=== PATIENT | female | born 1995 | race Caucasian/White ===

== ENCOUNTER 2022-03-09 19:32 | Emergency (ER) | payer OTHER, MEDICAID, SELFPAY ==
[2022-03-09 19:33] VITALS: BP 158/75; PULSE 89; RESP 16; TEMP 36.4; O2SAT 98; BMI 39.9
[2022-03-09 20:24] LABS: Hematocrit 31.8 % (37-47); Mean Corp Hgb Conc 34.6 g/dL (32-36); Mean Corpuscular Hgb 28.7 pg (27.0-32.0); Mean Platelet Vol. 9.7 fl (6.2-12.0); Platelet Count 185 K/mm3 (150-450); RBC Distribution Width SD 41.9 fl (35.1-43.9); Red Blood Count 3.83 M/mm3 (4.2-5.4); White Blood Count 8.6 K/mm3 (4.4-11.0)
[2022-03-09 20:25] LABS: Mucous, Urine 0 SEEN /hpf (<or=2+)
[2022-03-09] MEDS: 0.9% Normal Saline 1,000 ML 1000 ML IV (20:25)
[2022-03-09 20:28] LABS: Color, Urine Yellow (Yellow); Glucose, Dipstick Normal (Normal); Ketone-Dipstick Negative (Negative); Leukocyte Esterase-Dipstick 25 /ul (Negative); Nitrite-Dipstick Negative (Negative); Occult Blood-Urine 10 /ul (Negative); Protein-Dipstick Negative (Negative); Urine Bilirubin Dipstick Negative (Negative); Urine Clarity Clear (Clear); Urine Urobilinogen Normal (Normal); Urine pH 6.5 (5.0 - 8.0)
[2022-03-09 20:54] LABS: Bacteria 3+ /hpf (None Seen); Red Blood Cells-Urine 0-5 SEEN /hpf (0-5); Squamous Epithelial Cells - UA 0-5 SEEN /hpf (5-10); White Blood Cells 0-5 SEEN /hpf (0-5)
[2022-03-09 21:04] LABS: ALB/GLOB Ratio 0.8 RATIO (0.9-2.4); AST(SGOT) 25 U/L (15-37); Alanine Aminotransfer ALT/SGPT 16 U/L (13-56); Alkaline Phosphatase 45 U/L (45-117); Anion Gap 9 (5-15); BUN 6 mg/dL (7-18); BUN/Creat Ratio 8.9 RATIO (10-20); Calcium,Total 9.4 mg/dL (8.5-10.1); Chloride 106 mmol/L (98-107); Creatinine, Serum 0.67 mg/dL (0.55-1.02); EST Glomerular Filtration Rate 114 mL/min (>60); Est Glom Filt Rate - Afr Amer 138 mL/min (>60); Globulin 3.8 g/dL (2.2-4.2); Glucose 79 mg/dL (74-106); Potassium 3.6 mmol/L (3.5-5.1); Protein, Total 6.8 g/dL (6.4-8.2); Sodium Level 136 mmol/L (136-145)
[2022-03-09 21:17] VITALS: BP 128/62; PULSE 81; RESP 22; O2SAT 98
--- NOTE | 2022-03-09 21:37 | EDS_ITS ---
HPI History of Present Illness Chief Complaint: Dizziness Informant: patient Onset/Context/Timing Onset: Days Context: Gradual Onset Timing: Continuous Quality: generalized Current Severity: Mild Associated Symptoms Associated Symptoms: nothing Narrative Narrative: at [address] Ritter. Twin . She was sent in for dizziness, told she needed fluids. She had an episode of vomiting but no further vomiting. No diarrhea. She has had an ultrasound already during this . She is not having any bleeding. She has some mild abdominal pain. No new discharge. No urinary symptoms. No fevers. Prior similar symptoms: No PFSH PFSH Medical History no medical history Home Medications aspirin 81 mg tablet,delayed release 81 mg PO DAILY 03/09/22 [History Last Taken Unknown] folic acid 800 mcg tablet 0.8 mg PO DAILY 03/09/22 [History Last Taken Unknown] vit (without vit A)-iron,carbonyl-FA 29 mg-1 mg tablet 1 tab PO DAILY 03/09/22 [History Last Taken Unknown] sertraline 100 mg tablet 200 tab PO DAILY 03/09/22 [History Last Taken Unknown] Allergy/AdvReac Type Severity Reaction Status Date / Time acetaminophen [From [place]] Allergy Rash Verified 03/09/22 19:35 hydrocodone [From [place]] Allergy Rash Verified 03/09/22 19:35 Sulfa (Sulfonamide Allergy Itching Verified 03/09/22 19:35 Antibiotics) Social History Smoking Status: Never smoker ROS ROS ED Review of Systems ROS Unobtainable: Denies due to encephalopathy Constitutional Constitutional ED: Denies chills Eyes Eyes: Denies blurry vision ENT ENT ED: Denies ear pain Cardiovascular Cardiovascular: Denies chest pain Respiratory/Chest Respiratory/Chest: Denies cough Gastrointestinal Gastrointestinal: Reports abdominal pain and vomiting Genitourinary Genitourinary ED: Denies dysuria Musculoskeletal Musculoskeletal: Denies arthralgias Integumentary Denies abscess Neurologic Neurologic: Denies headache(s) Psychiatric Psychiatric: Denies anxiety Endocrine Endocrinology: Denies cold intolerance Hematologic/Lymphatic Hematologic/Lymphatic: Denies systems reviewed and no addt'l complaints, except as documented Allergic/Immunologic Allergic/Immunologic ED: Denies mouth swelling EXAM Physical Exam Const Vital Signs: 03/09/22 19:33 03/09/22 19:54 03/09/22 21:17 Temperature 97.6 F L Temperature Source Temporal Pulse Rate 89 81 Respiratory Rate 16 22 H Respiratory Effort Normal Non-Labored Respiratory Pattern Normal Blood Pressure 158/75 H 128/62 H Blood Pressure Mean 102 84 Pulse Ox 98 98 Oxygen Delivery Method Room Air Room Air Positive well nourished HEENT Reports moist mucous membranes Eyes EOMs intact bilaterally Resp normal respiratory effort Cardio regular rate GI GI Narrative: Full, nontender Back/Spine no CVA tenderness Extremity normal to inspection Neuro oriented x3 Psych mental status grossly normal Skin no rashes or lesions noted MDM MDM MDM Narrative Medical decision making narrative: Nursing was unable to obtain heart tones on both pregnancies. I used a bedside ultrasound and visualized both pregnancies. Both had spontaneous movement and good cardiac activity. Patient's hemoglobin was 11. Metabolic panel and liver panel were unremarkable. She had 3+ bacteria in her urine, 25 leuk esterase but negative nitrites and negative white cells. I sent a culture. I do not believe she has an infection based on her history and symptoms. She will follow-up with her HYDRAULIC PILE HAMMER OPERATOR. She was advised if she does have urine symptoms or fever, she should return right away or follow-up with her HYDRAULIC PILE HAMMER OPERATOR right away. Patient received IV fluids. She feels slightly better. I do not believe she needs further interventions or diagnostic testing. She will be discharged to follow-up as an outpatient. Return for new or worsening issues. Impression #1 twin Impression #2 dizziness Impression #3 bacteriuria Lab Data Attestation: I reviewed the patient's lab results. Labs: Laboratory Results - last 24 hr 03/09/22 03/09/22 03/09/22 19:50 19:50 20:19 WBC 8.6 RBC 3.83 L Hgb 11.0 L Hct 31.8 L MCV 83.0 MCH 28.7 MCHC 34.6 RDW Std Deviation 41.9 RDW Coeff of Aung 14.0 Plt Count 185 MPV 9.7 Sodium 136 Potassium 3.6 Chloride 106 Carbon Dioxide 21.0 Anion Gap 9 BUN 6 L Creatinine 0.67 Estim Creat Clear Calc 97.70 Est GFR (MDRD) Af Amer 138 Est GFR (MDRD) Non-Af 114 BUN/Creatinine Ratio 8.9 L Glucose 79 Calcium 9.4 Total Bilirubin 0.30 AST 25 ALT 16 Alkaline Phosphatase 45 Total Protein 6.8 Albumin 3.0 L Globulin 3.8 Albumin/Globulin Ratio 0.8 L Urine Color Yellow Urine Clarity Clear Urine pH 6.5 Ur Specific [place] 1.010 Urine Protein Negative Urine Glucose (UA) Normal Urine Ketones Negative Urine Occult Blood 10 H Urine Nitrite Negative Urine Bilirubin Negative Urine Urobilinogen Normal Ur Leukocyte Esterase 25 H Urine RBC 0-5 SEEN Urine WBC 0-5 SEEN Ur Squamous Epith Cells 0-5 SEEN Urine Bacteria 3+ Urine Mucus 0 SEEN Discharge Plan Triage Chief Complaint: Dizziness ED Provider: Canelo Crawford Dx/Rx/DC Orders Prescriptions: No Action sertraline 100 mg tablet 200 tab PO DAILY aspirin [Aspir-81] 81 mg Tablet,Delayed Release (Dr/Ec) 81 mg PO DAILY folic acid 800 mcg Tablet 0.8 mg PO DAILY Prenatabs OBN 29-1 mg Tablet 1 tab PO DAILY Primary Care Provider: PEARL ALEXANDRA Referrals: PEARL ALEXANDRA MD [Primary Care Provider] -
[2022-03-09 22:19] VITALS: BP 125/74; PULSE 85; RESP 17; O2SAT 98
== END 2022-03-09 22:29 | disposition home or self-care (01) ==
PROVIDERS: Emergency Provider Emergency Medicine; PCP Internal Medicine; Visit Provider Emergency Medicine
DX: O99.891 Other specified diseases and conditions complicating pregnancy (principal); O30.002 Twin pregnancy, unspecified number of placenta and unspecified number of amniotic sacs, second trimester; Z3A.16 16 weeks gestation of pregnancy; R42 Dizziness and giddiness; R82.71 Bacteriuria
CPT/HCPCS: 80053; 81001; 85027; 87086; 87088; 96360; 96361; 99282; J7030

== ENCOUNTER 2022-06-29 15:10 | Outpatient (CLI) | payer OTHER, MEDICAID, SELFPAY ==
[2022-06-29 15:35] VITALS: TEMP 37.1
[2022-06-29 15:38] VITALS: BP 129/77; PULSE 83
[2022-06-29] MEDS: LACTATED RINGERS 500 ML 999 ML IV (15:54)
[2022-06-29 16:16] LABS: Hematocrit 30.3 % (37-47); Hemoglobin 10.2 g/dL (12.0-15.0); Mean Corp Hgb Conc 33.7 g/dL (32-36); Mean Corpuscular Volume 86.1 fL (81-99); Mean Platelet Vol. 8.8 fl (6.2-12.0); Platelet Count 141 K/mm3 (150-450); RBC Distribution Width CV 14.2 % (11.6-14.6); RBC Distribution Width SD 43.7 fl (35.1-43.9); Red Blood Count 3.52 M/mm3 (4.2-5.4); White Blood Count 7.8 K/mm3 (4.4-11.0)
[2022-06-29 16:18] VITALS: BMI 41.5
[2022-06-29] MEDS: Betamethasone/Betamethasone 30 MG/5 ML Vial 12 MG IM (16:36)
[2022-06-29 16:49] LABS: Mucous, Urine 0 SEEN /hpf (<or=2+); Red Blood Cells-Urine 0 SEEN /hpf (0-5)
[2022-06-29 16:56] LABS: Color, Urine Yellow (Yellow); Glucose, Dipstick Normal (Normal); Ketone-Dipstick 50 mg/dl (Negative); Leukocyte Esterase-Dipstick 25 /ul (Negative); Nitrite-Dipstick Negative (Negative); Occult Blood-Urine Negative /ul (Negative); Protein-Dipstick 15 mg/dl (Negative); Urine Bilirubin Dipstick Negative (Negative); Urine Clarity Clear (Clear); Urine Urobilinogen Normal (Normal)
[2022-06-29 17:30] LABS: Bacteria 1+ /hpf (None Seen); Squamous Epithelial Cells - UA 0-5 SEEN /hpf (5-10); White Blood Cells 0-5 SEEN /hpf (0-5)
[2022-06-29 18:10] VITALS: BP 134/75; PULSE 82
--- NOTE | 2022-06-29 19:11 | OB.TRI.NOTE ---
HPI - General HPI Narrative JOSE TEE, is a 26 F at 32.2 weeks gestation with Di/Di twins who was sent over from office for extended monitoring and Celestone IM X 1. Patient seen in office for cramps/contractions and back pain that started yesterday evening. She denies any loss of fluid, vaginal bleeding and has positive movements. CE in office . Maternal Data Information MARILIA Calculator Estimated Delivery Date Method Current WG Current Estimate 08/22/22 Manual 32w 2d PFSH PFSH Home Medications aspirin 81 mg tablet,delayed release 81 mg PO DAILY 03/09/22 [History Last Taken 06/28/22] folic acid 800 mcg tablet 0.8 mg PO DAILY 03/09/22 [History Last Taken 06/28/22] vit (without vit A)-iron,carbonyl-FA 29 mg-1 mg tablet 1 tab PO DAILY 03/09/22 [History Last Taken 06/28/22] sertraline 100 mg tablet 200 tab PO DAILY 03/09/22 [History Last Taken 06/28/22] Allergy/AdvReac Type Severity Reaction Status Date / Time acetaminophen [From [place]] Allergy Rash Verified 06/29/22 16:23 hydrocodone [From [place]] Allergy Rash Verified 06/29/22 16:23 Sulfa (Sulfonamide Allergy Itching Verified 06/29/22 16:23 Antibiotics) Social History Smoking Status: Never smoker ROS Eyes Eyes: Denies blurry vision Cardiovascular Cardiovascular: Reports none; Denies chest pain at rest, chest pain with activity or dizziness Respiratory/Chest Respiratory/Chest: Denies cough or dyspnea Gastrointestinal Gastrointestinal: Reports none and other; Denies diarrhea or vomiting Genitourinary Genitourinary: Denies dysuria Musculoskeletal Musculoskeletal: Reports none Integumentary Integumentary: Reports none; Denies rash Neurologic Neurologic: Denies dizziness, headache(s) or other visual disturbances Psychiatric Psychiatric: Reports none Physical Exam Const alert and no apparent distress General Appearance: cooperative Orientation / Consciousness: awake Exam Limitations: no limitations HEENT normocephalic Eyes General Eye: normal appearance of both eyes Neck full ROM Chest inspection of chest normal Resp normal respiratory effort and normal air movement Effort and Inspection: symmetric chest movement Auscultation: clear to auscultation bilaterally Cardio regular rate GI soft to palpation, non-tender and non-distended Inspection: and other Back/Spine normal ROM Extremity full ROM, normal capillary refill and no calf tenderness Skin no rashes or lesions noted Neuro oriented x3 and CN's II-XII intact bilaterally Psych mental status grossly normal NST FHR Rate Baby A Baseline: 135 Variability:: Moderate Accelerations:: 15 x 15 Decelerations:: None NST Reactive:: Yes FHR Rate Baby B Baseline: 155 Variability:: Moderate Accelerations:: 15 x 15 Decelerations:: None NST Reactive:: Yes Uterine Activity:: 1-4 minutes, palpate mild and relaxed in between Assessment & Plan (1) Dichorionic diamniotic twin in third trimester: (2) 32 weeks gestation of : (3) Uterine contractions: PLAN: Plan IV started- 500 cc fluid bolus x 1 then run at 50 cc/hour UA- positive for ketones, protein, and leukocyte estrace Celestone 12 mg IM x 1 now and repeat dose in 24 hours NST reactive- Contractions via TOCO every 2-4 minutes- palpate mild- patient does not feel all contractions TAUS confirms Baby A vertex and Baby B vertex CE- 3/70/-2- Change from office exam Continue to monitor over night and will reevaluate in AM or as indicated Aluminum Boat Assembly Supervisor consulted Dr. Parisi involved in plan of care and is collaborating physician
[2022-06-29 19:29] VITALS: BP 136/78; PULSE 86; TEMP 36.6
[2022-06-29] MEDS: Lactated Ringers 500 ML 999 ML IV (19:50)
[2022-06-29] MEDS: Lactated Ringers 1,000 ML 50 ML IV (20:21)
--- NOTE | 2022-06-29 21:40 | PCM.PN.BLA ---
Progress Note Called to patient's room for evaluation due to continued contractions every 1-2 minutes. IV fluid bolus completed. Patient starting to feel contractions. Assessment & Plan Assessment/Plan (1) Uterine contractions: (2) 32 weeks gestation of : (3) Dichorionic diamniotic twin in third trimester: (4) labor: PLAN: Plan CE- 3.5/70/-2 Bulging bag felt with contraction Dr. Parisi notified and patient to be transferred to a tertiary care hospital ([facility]) Dr. Parisi to speak with MFM transition nurse to discuss transport and plan of care Financial Services Manager updated
--- NOTE | 2022-06-29 21:48 | HP.PCM.OB_ITS ---
HPI - General HPI Narrative JOSE TEE, is a 26 F with dichorionic/diamniotic twin gestation that presented with contractions and labor. She continued to have contractions every 1-3 minutes and made cervical change since arrival to triage. has been complicated by Obesity, Anemia, and Thrombocytopenia. Maternal Data Information MARILIA Calculator Estimated Delivery Date Method Current WG Current Estimate 08/22/22 Manual 32w 2d PFSH PFSH Home Medications aspirin 81 mg tablet,delayed release 81 mg PO DAILY 03/09/22 [History Last Taken 06/28/22] folic acid 800 mcg tablet 0.8 mg PO DAILY 03/09/22 [History Last Taken 06/28/22] vit (without vit A)-iron,carbonyl-FA 29 mg-1 mg tablet 1 tab PO DAILY 03/09/22 [History Last Taken 06/28/22] sertraline 100 mg tablet 200 tab PO DAILY 03/09/22 [History Last Taken 06/28/22] Allergy/AdvReac Type Severity Reaction Status Date / Time acetaminophen [From [place]] Allergy Rash Verified 06/29/22 16:23 hydrocodone [From [place]] Allergy Rash Verified 06/29/22 16:23 Sulfa (Sulfonamide Allergy Itching Verified 06/29/22 16:23 Antibiotics) Social History Smoking Status: Never smoker Visit Details OB Flowsheet Initial Weight: Not Recorded Date -?-?-?-?-?-?-?-?-?-?-?-?- EGA Weight BP Urine Prot -?-?-?-?-?-?-?-?-?-?-?-?- Glucose FHR FuHt Pres Dilation -?-?-?-?-?-?-?-?-?-?-?-?- Effaced St Visit Note 06/29/22 -?-?-?-?-?-?-?-?-?-?-?-?- 32w 2d 220 lb 129/77 134/75 136/78 135/73 15 mg/dl (Negative) H -?-?-?-?-?-?-?-?-?-?-?-?- -?-?-?-?-?-?-?-?-?-?-?-?- NST FHR Rate Baby A Baseline: 135 Variability:: Moderate Accelerations:: 15 x 15 Decelerations:: None NST Reactive:: Yes FHR Category:: Category I FHR Rate Baby B Baseline: 155 Variability:: Moderate Accelerations:: 15 x 15 Decelerations:: None NST Reactive:: Yes FHR Category:: Category I Uterine Activity:: TOCO- 1-3 minutes, palpate mild to moderate and relaxed in between ROS Eyes Eyes: Denies blurry vision, change in vision or spots in vision ENT HEENT: Denies dizziness or headache(s) Cardiovascular Cardiovascular: Denies abdominal pain, chest pain or dyspnea Respiratory/Chest Respiratory/Chest: Denies cough, dyspnea, shortness of breath at rest or shortness of breath with exertion Gastrointestinal Gastrointestinal: Denies abdominal pain, diarrhea or vomiting Genitourinary Genitourinary: Denies change in urinary stream, difficulty urinating or dysuria Musculoskeletal Musculoskeletal: Reports none Integumentary Integumentary: Denies rash Neurologic Neurologic: Denies dizziness, headache(s), memory loss or weakness Psychiatric Psychiatric: Reports none Vital Signs Vital Signs Vital Signs: 06/29/22 15:38 06/29/22 15:38 06/29/22 15:35 Temperature Temperature Source Tympanic Pulse Rate 83 Blood Pressure 129/77 H BP Systolic 129 BP Diastolic 77 06/29/22 15:35 06/29/22 18:10 06/29/22 18:10 Temperature 98.7 F Temperature Source Pulse Rate 82 Blood Pressure 134/75 H BP Systolic 134 BP Diastolic 75 06/29/22 19:29 06/29/22 19:29 06/29/22 19:29 Temperature Temperature Source Temporal Pulse Rate 86 Blood Pressure 136/78 H BP Systolic 136 BP Diastolic 78 06/29/22 19:29 Temperature 97.8 F Temperature Source Pulse Rate Blood Pressure BP Systolic BP Diastolic Weight Weight: 220 lb Body Mass Index (BMI) 41.5 Physical Exam Const alert and no apparent distress General Appearance: cooperative Orientation / Consciousness: awake Exam Limitations: no limitations HEENT normocephalic Eyes General Eye: normal appearance of both eyes Neck full ROM Chest inspection of chest normal Resp normal respiratory effort and normal air movement Effort and Inspection: symmetric chest movement Auscultation: clear to auscultation bilaterally Cardio regular rate GI soft to palpation, non-tender and non-distended Inspection: and other Back/Spine normal ROM Extremity full ROM, normal capillary refill and no calf tenderness Skin no rashes or lesions noted Neuro oriented x3 and CN's II-XII intact bilaterally Psych mental status grossly normal Labs Labs Labs: Blood Type A POSITIVE Antibody Screen NEGATIVE Hct 30.3 % (37-47) L Hgb 10.2 g/dL (12.0-15.0) L GBS - pending Assessment & Plan (1) labor: (2) 32 weeks gestation of : (3) Dichorionic diamniotic twin in third trimester: (4) Obesity: (5) Anemia affecting : (6) Thrombocytopenia affecting : PLAN: Plan Dr. Parisi - Physician family preservation officer and involved with plan of care CE- 3.5/70/-2 Celestone 12 mg IM x 1 dose given TAUS confirms vertex position for baby A and baby B Transfer patient to tertiary care hospital ([facility]) via transport team Dr. Ramez Golden is receiving physician
[2022-06-29 21:55] VITALS: BP 135/73; PULSE 83
== END 2022-06-29 23:05 | disposition short-term general hospital (02) ==
LOC: WPOUT 15:20 → WP 15:21
PROVIDERS: PCP Internal Medicine; Visit Provider Advanced Practice Midwife
DX: O30.043 Twin pregnancy, dichorionic/diamniotic, third trimester (principal); O47.03 False labor before 37 completed weeks of gestation, third trimester; O99.213 Obesity complicating pregnancy, third trimester; O99.013 Anemia complicating pregnancy, third trimester; Z3A.32 32 weeks gestation of pregnancy
CPT/HCPCS: 96360; 36415; 59025; 59050; 76815; 81001; 85027; 86850; 86900; 86901; 87086; 87088; 96372; 99218; J7120; G0378; J0702

== ENCOUNTER 2022-07-28 19:45 | Inpatient (IN) | payer OTHER, MEDICAID, SELFPAY ==
[2022-07-28] VITALS (52 sets, daily range): BP systolic 126–163; BP diastolic 60–92; PULSE 68–90; RESP 14–18; TEMP 36.9–38.7; O2SAT 91–100; BMI 41.5
[2022-07-28 19:56] LABS: ROM Internal Control Test YES-OK TO RESULT pt. (Internal QC)
[2022-07-28] MEDS: Lactated Ringers 1,000 ML 999 ML IV (20:00)
[2022-07-28 20:01] LABS: ROM Patient Test POSITIVE (Negative)
[2022-07-28 20:24] LABS: Absolute Lymphocyte Count 1.68 X10^3/uL (0.83-4.51); Absolute Neutrophil Count 6.5 X10^3/uL (2.0-7.7); Basophil# 0.01 X10^3/uL; Basophil% 0.1 % (0-1); Eosinophil# 0.05 X10^3/uL; Eosinophils% 0.6 % (0-5); Hematocrit 33.9 % (37-47); Hemoglobin 11.6 g/dL (12.0-15.0); Lymphocyte # 1.68 X10^3/ul (0.83-4.51); Lymphocyte % 18.9 % (19-41); Mean Corp Hgb Conc 34.2 g/dL (32-36); Mean Corpuscular Hgb 29.3 pg (27.0-32.0); Mean Corpuscular Volume 85.6 fL (81-99); Mean Platelet Vol. 8.9 fl (6.2-12.0); Monocyte# 0.57 X10^3/uL; Monocyte% 6.4 % (0-10); NRBC Flagged by Analyzer 0 % (0-5); Neutrophil # 6.51 X10^3/uL (2.7-7.7); Neutrophil % 73.4 % (47-70); Platelet Count 137 K/mm3 (150-450); RBC Distribution Width CV 13.8 % (11.6-14.6); RBC Distribution Width SD 42.5 fl (35.1-43.9); Red Blood Count 3.96 M/mm3 (4.2-5.4); White Blood Count 8.9 K/mm3 (4.4-11.0)
[2022-07-28] MEDS: Ondansetron 4 MG/2 ML Vial IV (20:24)
[2022-07-28] MEDS: 0.9% Saline Lock 10 ML Syringe IV (20:24)
[2022-07-28] MEDS: LACTATED RINGERS 500 ML 999 ML IV (20:25)
--- NOTE | 2022-07-28 20:29 | HP.PCM.OB_ITS ---
HPI - General General Date of Admission: 07/28/22 Date of Service: 07/28/22 Chief Complaint: labor HPI Narrative JOSE TEE, is a 26-year-old 1 para 0 with dichorionic diamniotic twins presents complaining of contractions and spontaneous rupture membranes. She is been having contractions since mid afternoon. She had spontaneous rupture membranes at 5:30 PM and the contractions got worse. She denies any severe headache, visual changes or epigastric pain. has been complicated to date by anemia, threatened labor and she received betamethasone earlier in the , thrombocytopenia, obesity with current BMI of 41, group B strep carrier and anxiety. Maternal Data Information MARILIA Calculator Estimated Delivery Date Method Current WG Current Estimate 08/22/22 Manual 36w 3d Final MARILIA: 08/22/22 Gestational age: 36 10/20 PFSH PFS Home Medications aspirin 81 mg tablet,delayed release 81 mg PO DAILY 03/09/22 [History Last Taken 06/28/22] folic acid 800 mcg tablet 0.8 mg PO DAILY 03/09/22 [History Last Taken 06/28/22] vit (without vit A)-iron,carbonyl-FA 29 mg-1 mg tablet 1 tab PO DAILY 03/09/22 [History Last Taken 06/28/22] sertraline 100 mg tablet 200 tab PO DAILY 03/09/22 [History Last Taken 06/28/22] Allergy/AdvReac Type Severity Reaction Status Date / Time acetaminophen [From [place]] Allergy Rash Verified 06/29/22 16:23 hydrocodone [From [place]] Allergy Rash Verified 06/29/22 16:23 Sulfa (Sulfonamide Allergy Itching Verified 06/29/22 16:23 Antibiotics) Social History Smoking Status: Never smoker ROS Constitutional Constitutional: Denies fatigue, fever(s) or malaise Eyes Eyes: Denies change in vision ENT HEENT: Denies dizziness or headache(s) Cardiovascular Cardiovascular: Denies chest pain, dyspnea or lightheadedness Respiratory/Chest Respiratory/Chest: Denies cough or dyspnea Gastrointestinal Gastrointestinal: Denies change in bowel habits Genitourinary Genitourinary: Denies burning urination or genital lesions Integumentary Integumentary: Denies rash Neurologic Neurologic: Denies confusion, dizziness, headache(s), numbness or weakness Vital Signs Vital Signs Vital Signs: 07/28/22 20:05 07/28/22 20:05 07/28/22 20:05 Temperature Temperature Source Pulse Rate 78 Blood Pressure 163/92 H BP Systolic 163 BP Diastolic 92 Pulse Ox 91 07/28/22 20:05 07/28/22 20:05 07/28/22 20:05 Temperature 100.2 F H Temperature Source Pulse Rate 76 Blood Pressure BP Systolic BP Diastolic Pulse Ox 98 07/28/22 20:05 07/28/22 20:05 07/28/22 20:05 Temperature 101.7 F H 98.6 F Temperature Source Temporal Pulse Rate Blood Pressure BP Systolic BP Diastolic Pulse Ox 07/28/22 20:10 07/28/22 20:10 07/28/22 20:15 Temperature Temperature Source Pulse Rate 85 82 Blood Pressure BP Systolic BP Diastolic Pulse Ox 99 07/28/22 20:15 07/28/22 20:20 07/28/22 20:20 Temperature Temperature Source Pulse Rate 79 Blood Pressure BP Systolic BP Diastolic Pulse Ox 100 99 07/28/22 20:21 07/28/22 20:21 07/28/22 20:25 Temperature Temperature Source Pulse Rate 78 78 Blood Pressure 160/92 H BP Systolic 160 BP Diastolic 92 Pulse Ox 07/28/22 20:25 Temperature Temperature Source Pulse Rate Blood Pressure BP Systolic BP Diastolic Pulse Ox 99 Weight Weight: 99.7 kg Body Mass Index (BMI) 41.5 Physical Exam Narrative 2+ DTRs, no clonus. Cervical exam was 490-1 station. Brief ultrasound was done which confirmed vertex and breech. Const alert and no apparent distress General Appearance: cooperative HEENT normocephalic Resp normal respiratory effort Cardio regular rate GI soft to palpation GI Narrative: gravid, nontender, appropriate for gestational age Extremity no calf tenderness General Extremity: edema Skin no wounds Rashes: No rashes noted Psych activity/motor behavior normal Labs Labs Labs: Blood Type A POSITIVE Antibody Screen NEGATIVE Hct 33.9 % (37-47) L Hgb 11.6 g/dL (12.0-15.0) L Assessment & Plan (1) 36 weeks gestation of : PLAN: Patient with spontaneous rupture membranes and spontaneous labor. Vertex breech presentation of twins. Last estimated weights were reviewed on ultrasound. Patient is an active labor. Risk benefits and alternatives to attempted vaginal delivery with version of second twin or potential breech extraction were reviewed with the patient, her questions were answered to her satisfaction. Discussed with her option of primary section. She would like to attempt a vaginal delivery. Epidural recommended. Blood pressures were significantly elevated. Patient is in the severe range. Will initiate hypertensive protocol magnesium prophylaxis. Patient has preeclampsia. Pelvis is clinically adequate to expect vaginal delivery. Group B strep prophylaxis is initiated. Pediatrics notified. Desires sterilization if section necessary. (2) Dichorionic diamniotic twin in third trimester: (3) labor:
[2022-07-28 20:45] LABS: AST(SGOT) 5 U/L (15-37); Alanine Aminotransfer ALT/SGPT 9 U/L (13-56); Creatinine, Serum 0.21 mg/dL (0.55-1.02); EST Glomerular Filtration Rate 445 mL/min (>60); Est Glom Filt Rate - Afr Amer 538 mL/min (>60); International Normalized Ratio 1.3; Prothrombin Time (Protime)PT. 15.6 SECONDS (11.7-14.9); Uric Acid 2.4 mg/dL (2.6-6.0)
[2022-07-28 20:46] LABS: Partial Thromboplast Time 32.6 Seconds (24.1-36.2)
[2022-07-28] MEDS: Labetalol (Prefilled) 20 MG/4 ML IV (20:53)
[2022-07-28] MEDS: fentaNYL-bupivacaine (epidural) 100 ML BAG EPIDURAL (21:25)
[2022-07-28] MEDS: Magnesium Sulfate 4gm/100mL 4 GM/100 ML IV.SOLN. IV (21:32)
[2022-07-28] MEDS: Labetalol 100 MG Tablet PO (21:44)
[2022-07-28 21:49] LABS: Fibrinogen 248 mg/dl (203-444)
[2022-07-28] MEDS: Magnesium Sulfate 4gm/100mL 2 GM/50 ML IV.SOLN. IV (21:55)
[2022-07-28] MEDS: Magnesium Sulfate 20 GM/500 ML BAG IV (22:08)
[2022-07-29] VITALS (45 sets, daily range): BP systolic 105–150; BP diastolic 55–92; PULSE 74–167; RESP 16–17; TEMP 36.2–37.8; O2SAT 96–100
[2022-07-29] MEDS: Acetaminophen 500 MG Tablet PO (00:43)
[2022-07-29] MEDS: Penicillin G 3,000,000 Units 50 ML 100 UNITS IV ×2 (00:52→04:56)
[2022-07-29] MEDS: DiphenhydrAMINE 50 MG/ML Syringe 25 MG IV (01:27)
[2022-07-29] MEDS: 0.9% Saline Lock 10 ML Syringe IV (01:27)
[2022-07-29] MEDS: Oxytocin 15 Units/NS 250ml 15 UNITS/250 ML IV.SOLN 2 UNITS IV (01:35)
[2022-07-29] MEDS: fentaNYL-bupivacaine (epidural) 100 ML BAG EPIDURAL ×2 (01:59→07:29)
[2022-07-29] MEDS: Lactated Ringers 1,000 ML 50 ML IV (04:56)
[2022-07-29] MEDS: Magnesium Sulfate 20 GM/500 ML BAG IV ×2 (09:12→18:32)
[2022-07-29] MEDS: Oxytocin 15 Units/NS 250ml 15 UNITS/250 ML IV.SOLN 83 UNITS IV (10:32)
--- NOTE | 2022-07-29 10:57 | OP.PCM_ITS ---
Maternal Data Information MARILIA Calculator Estimated Delivery Date Method Current WG Current Estimate 08/22/22 Manual 36w 4d Vaginal Delivery Maternal Presentation Maternal Presentation: Active Labor Maternal Presentation: Patient presented to [facility] in labor with preeclampsia with severe features 36 weeks 4 days Di Di twin gestation. Vertex/breech presentation. Patient was counseled by Dr. Parisi regarding vaginal delivery versus primary section. Patient at that time decided to proceed with vaginal delivery. 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 Good maternal pushing efforts delivered twin A. 's head was delivered good maternal pushing efforts delivered the infant and the was placed on the mother's chest for immediate skin to skin. 's cord was clamped and cut after approximately 30 seconds. The was vigorous at time of delivery. Nursery staff was available and present for delivery. At this time after twin A was delivered the cord was clamped. Ultrasound was performed which showed twin B still in breech presentation at this time attempted external cephalic version was attempted and failed. At this time patient was counseled on breech extraction versus primary section. Patient and agreed to proceed with breech extraction at this time. Backup was called anesthesia was already notified and in route to the OR for possible section. Once assistance arrived in the room double footling was appreciated on exam the feet were grasped membranes were incidentally ruptured. At this time the feet were grasped and breech extraction was performed. Once the feet were delivered and the buttocks was delivered the back was up and the arms did not deliver easily at this time my hand was placed through the cervix to sweep the posterior and anterior arms down which were extended above the head. Once they were swept down the 's head was then flexed pressure was kept in the suprapubic area and the infant was then delivered. The infant's cord was immediately clamped and cut. The infant was handed to the awaiting nursery team for resuscitation. Infant B Agpars were . Placenta a cord avulsed. At this time manual removal of placenta is with performed. The uterus was explored no retained placenta was noted. Uterine fundal massage was performed due to brisk bleeding and uterine atony. Pitocin was infusing. Uterus firmed and bleeding was minimal. Repair was performed in the usual fashion using 2-0 Vicryl and 3-0 Rapide. Excellent hemostasis appreciated. Vaginal sweep was performed it was negative. Instrument lap and needle count were correct x2. Presentation: Vertex Amniotic Membrane Rupture Type: Spontaneous Amniotic Fluid Description: Clear Placental Delivery Description: Manual Removal Placenta Disposition: Routine to Lab Specimen(s) Removed: placenta Cord Vessel Description: 3 Vessels Cord Entanglement: None Infant A Gender: Female (1 minute): 8 (5 minute): 9 Delayed Cord Clamping: Yes Post Vaginal Delivery Medications Given After Delivery: IV Pitocin Episiotomy Description: None Laceration: Perineal Extension/lac and 2nd degree (repaired using 2-0 vicryl and 3-0 rapide. ) Complication Complications: None Baby B Information Amniotic Membrane Rupture Type: Artificial Presentation: Footling Breech Operative Information Mode of Delivery: Vaginal Cord Vessel Description: 3 Vessels Cord Entanglement: None Cord Gases: ABG and VBG Infant B gender: Male (1 minute): 1 (5 minute): 7 (10min was 8) Delayed Cord Clamping: Yes
[2022-07-29] MEDS: Labetalol 100 MG Tablet PO ×2 (11:12→21:14)
--- NOTE | 2022-07-29 11:13 | PLAC_PTH ---
PATIENT: JOSE TEE LOC: [facility] U#:[id number] AGE/SX: 27/F ROOM: [facility] RE07/28/[address]: Dr. Annie Dangelo, MDDOB: 1995 BED: 1 DIS: 08/01/2022 SPEC #: [id number] RECD: 07/29/22 11:39 STATUS: ZEINAB EAN #: [id number] SYMONE: 07/29/22 11:[address]: Annie Dangelo DEPT: SURGICAL PATHOLOGY RECD BY: Carmen Lee ENTERED: 07/30/22 09:01 SP TYPE: PLACENTA OTHR DR: PEARL ALEXANDRA MD Tissues: Placenta, NOS Procedures: Surgery Specimen Level V HEADER OPERATION: Vaginal delivery PRE-OP DIAGNOSIS: Dichorionic diamniotic twins PRE E with severe features TISSUE SUBMITTED: Placenta MICROSCOPIC DIAGNOSIS Twin placenta: Diamniotic and dichorionic twin placenta. Placenta A: Placental disc - third trimester placenta (314 gm). - Focal increased calcifications. - Focal increased number of syncytial knots. - Focal mild acute vasculitis of subamniotic blood vessels. Membranes ? focal mild acute chorioamnionitis. Umbilical cord - three blood vessels and mild acute funisitis. Placenta B: Placental disc - third trimester placenta (382 gm). - Focal increased calcifications. Membranes ? no pathologic diagnosis. Umbilical cord - three blood vessels and no pathologic diagnosis. SJ:pura 07/31/2022 MICROSCOPIC DESCRIPTION Slides are reviewed. GROSS DESCRIPTION SPECIMEN: TWIN PLACENTA The specimen consists of twin placenta with two separate placental disc, two umbilical cords and two sets of membranes. The dividing membrane and septum is present between two placental discs. Also present in the container are two detached segments of umbilical cord. The placentas are not identified as placenta A or B. The placentas are arbitrarily assigned as placenta A and B. / CLINICAL INFORMATION: A. Weight: A ? 2.25 kg; B ? 2.64 kg B. Gestational Age: 36 weeks C. Sex: A ? Female, B - Male PLACENTA A: PLACENTAL WEIGHT (POST FIXATION): 314 gm PLACENTAL DIMENSIONS: 18 x 11 x 3 cm PLACENTAL SHAPE: Usual ovoid PLACENTAL WEIGHT FOR GESTATIONAL AGE: Within 10-99th percentile MEMBRANES - Present A. Insertion: Marginal B. Site of rupture from edge: At edge of placental disc C. Color of membrane: Smalls-dos santos D. Abnormalities: None UMBILICAL CORD - Present A. Color: Smalls-dos santos B. Insertion: Paracentral C. Length: 10 cm D. Diameter: 1.2 cm E. Number of vessels: Three F. Abnormalities: None PLACENTAL DISC - Present A. Color of surface: Smalls-dos santos B. surface abnormalities: None C. Maternal cotyledons: Intact with minimal tears. D. Attached retro placental clot: No clot E. Cut surface: Dark red and spongy F. Lesions: None G. Separate clot: Absent PLACENTA B: PLACENTAL WEIGHT (POST FIXATION): 382 gm PLACENTAL DIMENSIONS: 19 x 15 x 3 cm PLACENTAL SHAPE: Usual ovoid PLACENTAL WEIGHT FOR GESTATIONAL AGE: Within 10-99th percentile MEMBRANES - Present A. Insertion: Marginal B. Site of rupture from edge: At edge of placental disc C. Color of membrane: Smalls-dos santos D. Abnormalities: None UMBILICAL CORD - Present A. Color: Smalls-dos santos B. Insertion: Central C. Length: 17 cm D. Diameter: 1.2 cm E. Number of vessels: Three F. Abnormalities: None PLACENTAL DISC - Present A. Color of surface: Smalls-dos santos B. surface abnormalities: None C. Maternal cotyledons: cotyledons are partly disrupted, however, maternal surface appears to be complete. D. Attached retro placental clot: No clot E. Cut surface: Dark red and spongy F. Lesions: None G. Separate clot: Absent Also present in the container are two detached segments of umbilical cord measuring 28 cm in length and 1 cm in diameter and 19 cm in length and 1.2 cm in diameter. The segments are not assigned as to placenta A or B. SECTIONS SUBMITTED: 12 cassettes 1 - Dividing membranous septum, 2-6 - placenta A (2 - membrane roll, 3 - umbilical cord, end inked black, 4-6 - body of the placenta including maternal and surfaces), 7-11 - placenta B (7 - membrane roll, 8 - umbilical cord, end inked black, 9-11 - body of the placenta including maternal and surfaces), 12 ? detached segments of umbilical cord. YOSELIN:pura 07/30/2022 TC:2 CPT: 38258 x2
[2022-07-29] MEDS: Cefazolin 2 GM in 0.9% Normal Saline 100 ML IV (11:19)
[2022-07-29 11:41] LABS: Pathology Specimen OB SEE PATHOLOGY REPORT
[2022-07-29] MEDS: Acetaminophen 500 MG Tablet 1000 MG PO (14:36)
[2022-07-29] MEDS: Ferrous Sulfate 325 MG Tablet PO (19:02)
[2022-07-29] MEDS: Ibuprofen 600 MG Tablet PO (21:14)
[2022-07-30] VITALS (12 sets, daily range): BP systolic 117–142; BP diastolic 63–81; PULSE 72–89; RESP 15–116; TEMP 36.1–36.6; O2SAT 96–99
[2022-07-30] MEDS: Magnesium Sulfate 20 GM/500 ML BAG IV (03:38)
[2022-07-30 06:05] LABS: Hematocrit 25.3 % (37-47); Hemoglobin 8.5 g/dL (12.0-15.0); Mean Corp Hgb Conc 33.6 g/dL (32-36); Mean Corpuscular Hgb 29.6 pg (27.0-32.0); Mean Corpuscular Volume 88.2 fL (81-99); Mean Platelet Vol. 9.2 fl (6.2-12.0); Platelet Count 119 K/mm3 (150-450); RBC Distribution Width CV 14.6 % (11.6-14.6); RBC Distribution Width SD 46.5 fl (35.1-43.9); Red Blood Count 2.87 M/mm3 (4.2-5.4)
[2022-07-30] MEDS: Benzocaine/Lanolin/Aloe Vera 1 SPRAY EACH TOPICAL (08:53)
[2022-07-30] MEDS: Sertraline 100 MG Tablet 200 MG PO (10:24)
[2022-07-30] MEDS: Labetalol 100 MG Tablet PO ×2 (10:24→23:04)
[2022-07-30] MEDS: 0.9% Saline Lock 10 ML Syringe IV (10:24)
[2022-07-30] MEDS: Ferrous Sulfate 325 MG Tablet PO (11:53)
[2022-07-30] MEDS: Acetaminophen 500 MG Tablet 1000 MG PO (11:53)
--- NOTE | 2022-07-30 14:01 | PCM.PN.OB ---
Subjective Subjective Denies complaints Objective Data Objective Data Vital Signs: Vital Signs Temp Pulse Resp BP Pulse Ox O2 Del Method 97.8 F 81 16 127/67 H 96 Room Air 07/30/22 13:50 07/30/22 13:50 07/30/22 13:50 07/30/22 13:50 07/30/22 13:50 07/30/22 13:50 Oxygen Delivery Method Room Air Weight: 219 lb 12.814 oz Body Mass Index (BMI) 41.5 Intake & Output: Intake and Output for Last 24 Hours 07/28/22 07/29/22 07/30/22 23:59 23:59 23:59 Intake Total 1661.17 / 1661.17 3617.73 / 3767.73 1700.83 / 1700.83 Output Total 700 / 700 4700 / 4700 1550 / 1550 Balance 961.17 / 961.17 -1082.27 / -932.27 150.83 / 150.83 Lab / Micro Data Result Diagrams: 07/30/22 05:20 07/28/22 20:20 Labs: Laboratory Results - last 24 hr 07/30/22 05:20: WBC 11.0, RBC 2.87 L, Hgb 8.5 L, Hct 25.3 L, MCV 88.2, MCH 29.6, MCHC 33.6, RDW Std Deviation 46.5 H, RDW Coeff of Aung 14.6, Plt Count 119 L, MPV 9.2 Physical Exam Const alert, oriented x3 and no apparent distress HEENT normocephalic GI soft to palpation, non-tender and non-distended GI Narrative: fundus firm, mid & below umbilicus Extremity normal to inspection and no calf tenderness Assessment & Plan (1) Anemia affecting : QUALIFIERS: Trimester: unspecified trimester Qualified Code(s): O99.019 - Anemia complicating , unspecified trimester COMMENT: PPD#1 PLAN: Continue iron for anemia PP Hb = 8.5 (2) Vaginal delivery: PLAN: Routine PP care (3) Thrombocytopenia affecting : (4) Pre-eclampsia: PLAN: Continue magnesium for 24 hours PP. BP's normal overnight. Continue labetalol.
--- NOTE | 2022-07-30 16:27 | CASEMGMT ---
Social Work Date of referral: 07/30/22 Referred by: Nursing Reason for referral: HX of depression and anxiety Intervention: Resources, support History obtained from: medical record, patient Met with MOB/patient in room with twins. Introduced self and role. Pt agreed to speak with this worker. Began rapport building, open conversation. Pt shared about delivery and current status of babies. Pt appears calm, stable, willing to engage in conversation, comfortable with babies, handled crying and feeding of babies well during visit. Pt was open with mental health history, feelings of being overwhelmed at times with having twins as a first-time mom, however, excited for the journey; proud of delivery. SW validated feelings and provided verbal support. Household Composition: MOB lives with own mother, who works full-time as a in [employer]. 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 MOB reports FOB to be anxious about having the twins, meeting their needs financially, likes to have plans and organization /Delivery: Unplanned ; first children; twins: male and female; vaginal. Female : 8/9; Male : 1/7/8, breech, broken right clavicle Educational Status: High School Diploma; one year of college, then dropped out d/t depression being away from home. 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 Employed about 1.5 years. [address] from home. Unpaid maternity leave, but awarded time off as needed up to 12 weeks from delivery. MOB plans to return to work as able r/t finances. MOB has been off work for about 6 weeks r/t labor. Infant Supplies: Has all needs met. No concerns reported. currently; open to formula/bottle feeding if needed Transportation: No issues reported for MOB or FOB Programs/Agencies Involved: WIC during . WIC was canceled d/t MOB being in hospital/dr's appt for labor. MOB agreeable to new referral and restart of services. Legal Issues: None reported Substance/Alcohol/Tobacco Use: None; MOB reports occasional holiday alcohol intake prior to Support Systems: Boyfriend/FOB, Mother, family in [place] that can assist Childcare: Between MOB and FOB. MOB will be asking employer to adjust hours for the overlap in times when FOB starts his work shift. FOB reports to wanting to search for another employer closer to home. PHQ-2: Completed 07/30/22, score 0/2. DV/SI/HI: Denies on 07/28/22 and this date Mental Health History MOB: DX with depression and anxiety from PCP at age 20 when away at college. Reports becoming depressed, started on medication, remains on Zoloft 200 mg, managed by PCP, doing well so Dr did not want to [discontinue] Reports to own father passing away from [facility]- on 08/07/21, being referred to grief counseling. Pt intended on starting but got busy, found out I was , and never went. SW provided emotional support and explored coping of that loss. Pt reports to coping well, but did begin getting teary-eyed when telling of upcoming anniversary with new babies. SW inquired about openness to counseling; pt open. SW provided resources of agencies in [facility] to choose from. Acknowledged the difficulty in finding time to attend a session. Recommended keeping a standing appointment to allow predictable schedule and allowing one hour to dedicate to pt's mental health and well-being. Pt agreed. Encouraged pt to select agency for an appt will be made for her prior to DC. Pt agreeable and will notify nursing of selection. Referrals/Resources: Pt agreeable to [facility] referral - referral made by FELIPE online. Requested WIC referral as well. SW provided resources/application for WIC and [facility] to pt. Resources of Shaken Baby, PPD/A, depression, suicide hotlines, help hotlines, safe sleep, counseling provided. Educated to pt on FOB depression/anxiety. Encouraged to have open-communication between partners;honor each other's feelings; rely on support systems; accept help, but also follow gut to say no to requests/visits, etc.; self-care and examples. Pt receptive to all information and appreciative for this worker. Offered ongoing support or resources prior to DC as needed. Vangie Lerma, BUSINESS SERVICES ADMINISTRATOR [employer]
[2022-07-31 01:15] VITALS: BP 141/78; PULSE 80; RESP 15; TEMP 36.5; O2SAT 97
[2022-07-31 08:50] VITALS: BP 145/85; PULSE 61; RESP 16; TEMP 36.3
--- NOTE | 2022-07-31 08:50 | PCM.PN.OB ---
Subjective Subjective Doing well per patient and nursing staff. Ambulating and taking PO without difficulty. Voiding and passing flatus. Pain controlled. , services for assistance for tandu nursing. Denies headache, visual changes, chest pain, shortness of breath, leg pain or increased bleeding. Lochia normal. Planning D/C home tomorrow due to elevated BP and . Objective Data Objective Data Vital Signs: Vital Signs Temp Pulse Resp BP Pulse Ox O2 Del Method 97.7 F L 80 15 141/78 H 97 Room Air 07/31/22 01:15 07/31/22 01:15 07/31/22 01:15 07/31/22 01:15 07/31/22 01:15 07/31/22 01:15 Oxygen Delivery Method Room Air Weight: 219 lb 12.814 oz Body Mass Index (BMI) 41.5 Intake & Output: Intake and Output for Last 24 Hours 07/29/22 07/30/22 07/31/22 23:59 23:59 23:59 Intake Total 3617.73 / 3767.73 1700.83 / 1700.83 Output Total 4700 / 4700 1550 / 1550 Balance -1082.27 / -932.27 150.83 / 150.83 Lab / Micro Data Result Diagrams: 07/30/22 05:20 07/28/22 20:20 ROS Constitutional Constitutional: Reports systems reviewed and no addt'l complaints, except as documented; Denies headache(s) Eyes Eyes: Denies acute decrease in peripheral vision, blurry vision or change in vision ENT HEENT: Reports systems reviewed and no addt'l complaints, except as documented Cardiovascular Cardiovascular: Denies chest pain or dizziness Respiratory/Chest Respiratory/Chest: Denies cough, dyspnea, dyspnea on exertion, shortness of breath at rest or shortness of breath with exertion Gastrointestinal Gastrointestinal: Denies abdominal pain, diarrhea, nausea or vomiting Genitourinary Genitourinary: Denies abdominal discomfort Musculoskeletal Musculoskeletal: Denies limited range of motion Integumentary Integumentary: Reports systems reviewed and no addt'l complaints, except as documented Neurologic Neurologic: Reports systems reviewed and no addt'l complaints, except as documented Psychiatric Psychiatric: Reports systems reviewed and no addt'l complaints, except as documented Endocrine Endocrinology: Reports systems reviewed and no addt'l complaints, except as documented Hematologic/Lymphatic Hematologic/Lymphatic: Reports systems reviewed and no addt'l complaints, except as documented Allergic/Immunologic Allergic/Immunologic: Reports systems reviewed and no addt'l complaints, except as documented Physical Exam Const alert and oriented x3 General Appearance: cooperative Orientation / Consciousness: awake, oriented to person, oriented to place and oriented to time Exam Limitations: no limitations HEENT normocephalic Head and Scalp: normal to inspection, normocephalic and atraumatic Face and Sinus: normal facial exam Eyes General Eye: normal appearance of both eyes Neck full ROM Chest Chest: symmetrical chest wall rise Resp normal respiratory effort and normal air movement Auscultation: clear to auscultation bilaterally Cardio regular rate, regular rhythm, S1 normal heart sound, S2 normal heart sound, no murmurs, no rub, no gallops and no clicks GI normal to inspection, nondistended, normoactive bowel sounds and non-tender GI Narrative: Fundus firm 2 below U appearance of the vagina normal Bladder / Kidney Exam: no CVA tenderness Back/Spine normal ROM Extremity normal to inspection and full ROM Skin no rashes or lesions noted Neuro oriented x3, CN's II-XII intact bilaterally and moves all extremities Sensorium / Orientation: awake, alert and oriented to person Motor Exam: clonus absent Deep Tendon Reflexes: Rt Patellar (L4): 2+ and Lt Patellar (L4): 2+ Assessment & Plan (1) Pre-eclampsia: (2) Vaginal delivery: (3) Dichorionic diamniotic twin in third trimester: PLAN: Plan 1) Routine care 2) services 3) BP mildly elevated on Labetalol 100mg PO BID. Will stop Labetalol and start Procardia XL 30mg PO once daily. Consulted and agrees with plan. 4) Magnesium stopped yesterday morning. Asymptomatic at this time.I&Os 5) Planning D/C home tomorrow
[2022-07-31] MEDS: Sertraline 100 MG Tablet 200 MG PO (09:58)
[2022-07-31] MEDS: 0.9% Saline Lock 10 ML Syringe IV ×2 (10:58→18:20)
[2022-07-31] MEDS: NIFEdipine 30 MG Tablet PO (10:58)
[2022-07-31] MEDS: Acetaminophen 500 MG Tablet 1000 MG PO ×2 (13:00→19:54)
[2022-07-31] MEDS: Ferrous Sulfate 325 MG Tablet PO (13:04)
[2022-07-31 14:31] VITALS: BP 138/77; PULSE 96; RESP 16; TEMP 36.6; O2SAT 96
[2022-07-31] MEDS: Ibuprofen 600 MG Tablet PO (16:36)
[2022-07-31] MEDS: Ketorolac 30 MG/ML Syringe IV (18:20)
[2022-07-31 20:12] VITALS: BP 148/81; PULSE 69; RESP 16; TEMP 36.4
[2022-07-31 20:30] VITALS: BP 149/81
[2022-08-01 01:30] VITALS: BP 146/69; PULSE 73; RESP 17; TEMP 36.4
[2022-08-01 08:00] VITALS: BP 143/75; PULSE 70; RESP 18; TEMP 36.2; O2SAT 97
[2022-08-01] MEDS: Sertraline 100 MG Tablet 200 MG PO (09:34)
[2022-08-01] MEDS: Senna/Docusate Sodium 1 Tablet PO (09:34)
[2022-08-01] MEDS: NIFEdipine 30 MG Tablet PO (09:35)
[2022-08-01] MEDS: 0.9% Saline Lock 10 ML Syringe IV (09:35)
[2022-08-01 11:21] VITALS: BP 129/79; PULSE 85; RESP 18; TEMP 36.6; O2SAT 98
--- NOTE | 2022-08-01 12:25 | PN.OBGYN_ITS ---
Subjective Subjective Doing well per patient and nursing staff. Ambulating and taking PO without difficulty. Voiding and passing flatus. Pain controlled. and tandem nursing/supplementing with donor milk. Denies headache, visual changes, chest pain, shortness of breath, leg pain or increased bleeding. Lochia normal. Objective Data Objective Data Vital Signs: Vital Signs Temp Pulse Resp BP Pulse Ox O2 Del Method 97.8 F 85 18 129/79 H 98 Room Air 08/01/22 11:21 08/01/22 11:21 08/01/22 11:21 08/01/22 11:21 08/01/22 11:21 08/01/22 11:21 Oxygen Delivery Method Room Air Weight: 219 lb 12.814 oz Body Mass Index (BMI) 41.5 Intake & Output: Intake and Output for Last 24 Hours 07/30/22 07/31/22 08/01/22 23:59 23:59 23:59 Intake Total 1700.83 / 1700.83 Output Total 1550 / 1550 Balance 150.83 / 150.83 Lab / Micro Data Result Diagrams: 07/30/22 05:20 07/28/22 20:20 ROS Constitutional Constitutional: Reports systems reviewed and no addt'l complaints, except as documented; Denies headache(s) Eyes Eyes: Denies acute decrease in peripheral vision, blurry vision or change in vision ENT HEENT: Reports systems reviewed and no addt'l complaints, except as documented Cardiovascular Cardiovascular: Denies chest pain or dizziness Respiratory/Chest Respiratory/Chest: Denies cough, dyspnea, dyspnea on exertion, shortness of breath at rest or shortness of breath with exertion Gastrointestinal Gastrointestinal: Denies abdominal pain, diarrhea, nausea or vomiting Genitourinary Genitourinary: Denies abdominal discomfort Musculoskeletal Musculoskeletal: Denies limited range of motion Integumentary Integumentary: Reports systems reviewed and no addt'l complaints, except as documented Neurologic Neurologic: Reports systems reviewed and no addt'l complaints, except as docum ented Psychiatric Psychiatric: Reports systems reviewed and no addt'l complaints, except as documented Endocrine Endocrinology: Reports systems reviewed and no addt'l complaints, except as documented Hematologic/Lymphatic Hematologic/Lymphatic: Reports systems reviewed and no addt'l complaints, except as documented Allergic/Immunologic Allergic/Immunologic: Reports systems reviewed and no addt'l complaints, except as documented Physical Exam Const alert and oriented x3 General Appearance: cooperative Orientation / Consciousness: awake, oriented to person, oriented to place and oriented to time Exam Limitations: no limitations HEENT normocephalic Head and Scalp: normal to inspection, normocephalic and atraumatic Face and Sinus: normal facial exam Eyes General Eye: normal appearance of both eyes Neck full ROM Chest Chest: symmetrical chest wall rise Resp normal respiratory effort and normal air movement Auscultation: clear to auscultation bilaterally Cardio regular rate, regular rhythm, S1 normal heart sound, S2 normal heart sound, no murmurs, no rub, no gallops and no clicks GI normal to inspection, nondistended, normoactive bowel sounds and non-tender appearance of the vagina normal Bladder / Kidney Exam: no CVA tenderness Back/Spine normal ROM Extremity normal to inspection and full ROM Skin no rashes or lesions noted Neuro oriented x3, CN's II-XII intact bilaterally and moves all extremities Sensorium / Orientation: awake, alert and oriented to person Motor Exam: clonus absent Deep Tendon Reflexes: Rt Patellar (L4): 2+ and Lt Patellar (L4): 2+ Assessment & Plan (1) Pre-eclampsia: (2) Vaginal delivery: PLAN: Plan 1) D/C home today 2) instructions 3) Pain controlled 4) BP mildly elevated, Procardia XL 30 mg PO given this morning. Continue Procardia 30mg XL. Consulted and agrees with plan. 5) Hgb 8.5, Ferrous sulfate 325mg PO once daily
--- NOTE | 2022-08-01 12:27 | PCM.DC.SUM ---
Providers Date of Admission: 07/28/22 Primary Care Physician: PEARL ALEXANDRA MD Reason For Visit: VAGINAL DELIVERY-BABY 1 & BABY 2 Diagnosis Discharge Diagnosis (1) Pre-eclampsia: Status: Acute Code(s): O14.90 - Unspecified pre-eclampsia, unspecified trimester (2) Vaginal delivery: Status: Acute Code(s): O80 - Encounter for full-term uncomplicated delivery Plan 1) D/C home today 2) instructions 3) Pain controlled 4) BP mildly elevated, Procardia XL 30 mg PO given this morning. Medications at Discharge Home Medications vit (without vit A)-iron,carbonyl-FA 29 mg-1 mg tablet 1 tab PO DAILY 03/09/22 sertraline 100 mg tablet 200 tab PO DAILY ANXIETY/DEPRESSION 03/09/22 ferrous sulfate 325 mg PO.IVFORM DAILY ANEMIA #30 TABLETS 08/01/22 nifedipine 30 mg tablet,extended release 24 hr 30 mg PO DAILY #30 tabs 08/01/22 Weight / BMI Weight Weight: 219 lb 12.814 oz Body Mass Index (BMI) 41.5 ABG / Lab / Microbiology Data Result Diagrams: 07/30/22 05:20 07/28/22 20:20 Meaningful Use Info Meaningful Use Diagnoses (Choose all that apply): None applicable Discharge Plan Admission Admit Date/Time: 07/28/22 19:45 Primary Reason for Your Visit: Vaginal delivery Attending Provider: Annie Dangelo Primary Care Provider: PEARL ALEXANDRA Instructions Patient Instructions: After a Vaginal Discharge Orders/Prescriptions Prescriptions: New nifedipine 30 mg Tablet Extended Release 24hr 30 mg PO DAILY Qty: 30 0RF Continued sertraline 100 mg tablet 200 tab PO DAILY PNV w/o vit A-iron,carbonyl-FA 29-1 mg Tablet 1 tab PO DAILY ferrous sulfate 325 mg PO.IVFORM DAILY Qty: 30 0RF Discontinued aspirin [Aspir-81] 81 mg Tablet,Delayed Release (Dr/Ec) 81 mg PO DAILY folic acid 800 mcg Tablet 0.8 mg PO DAILY Referrals / Follow Up: Annie Dangelo MD [Med Staff - Active Staff] - (follow up early next week for blood pressure check Follow up in 6 weeks for visit) PEARL ALEXANDRA MD [Primary Care Provider] - Disposition Disposition (needs filled in before D/C Order can be placed): Home, Self Care
[2022-08-01] MEDS: Ferrous Sulfate 325 MG Tablet PO (12:31)
--- NOTE | 2022-08-01 18:03 | CASEMGMT ---
FELIPE noted that patient had been discharge. FELIPE had received email from [employer] Bethel Marx to follow up and see if patient had questions if this sports writer had time on this date. FELIPE called patient (as she was discharged) and left voice mail inquiring as to how patient was doing and if she had questions regarding the resources that Vangie had provided to her. FELIPE left call back number. Marjan GALLAGHER
--- NOTE | 2022-08-03 13:48 | CASEMGMT ---
FELIPE followed up with patient following her discharge from on Wednesday. CARA reports she is doing well. Acknowledged that the first night was difficult but now it is going better and she feels that she is getting into a routine. CARA said that she just completed phone calls to schedule appointments for the nb's and was getting ready to schedule appointments for herself, which included counseling appointments. FELIPE asked CARA if she had any questions regarding counseling resources and she denied any issues or concerns. Emotional support was provided. No concerns voiced. Plan: Emotional support provided Marjan GALLAGHER
== END 2022-08-01 15:10 | disposition home or self-care (01) | DRG 806 ==
LOC: WPOUT 19:50 → WP 19:50
PROVIDERS: Obstetrics & Gynecology; Admitting Provider Obstetrics & Gynecology; PCP Internal Medicine; Referring Provider Obstetrics & Gynecology; Visit Provider Obstetrics & Gynecology
DX: O14.14 Severe pre-eclampsia complicating childbirth (principal); Z37.2 Twins, both liveborn; O99.12 Other diseases of the blood and blood-forming organs and certain disorders involving the immune mechanism complicating childbirth; D69.6 Thrombocytopenia, unspecified; O72.1 Other immediate postpartum hemorrhage; O30.043 Twin pregnancy, dichorionic/diamniotic, third trimester; O32.1XX2 Maternal care for breech presentation, fetus 2; O70.1 Second degree perineal laceration during delivery; O99.824 Streptococcus B carrier state complicating childbirth; O99.214 Obesity complicating childbirth; Z3A.36 36 weeks gestation of pregnancy; O99.02 Anemia complicating childbirth
CPT/HCPCS: 59025; 59050; 76815; 82565; 84112; 84450; 84460; 84550; 85025; 85027; 85384; 85610; 85730; 86850; 86900; 86901; 88307; 99218; J7120; A4216; G0378; J2405